=== PATIENT | female | born 1940 ===

== ENCOUNTER 2020-09-29 07:00 | Inpatient (IN) | payer OTHER ==
[~2020-09-29] VITALS: Ht 157.5 cm; Wt 72.6 kg
[2020-09-29] MEDS ORDERED: NAMENDA5 MG PO (08:18)
[2020-09-29] MEDS ORDERED: COZAAR50 MG PO (08:18)
[2020-09-29] MEDS ORDERED: CHLORTHALIDONE PO (08:19)
[2020-09-29] MEDS ORDERED: CRESTOR10 MG PO (08:19)
[2020-09-29] MEDS ORDERED: ROZEREM8 MG PO (08:20)
[2020-09-29] MEDS ORDERED: ELAVIL PO (08:20)
[2020-10-05] MEDS ORDERED: ESCITALOPRAM OX10 MG PO (08:18)
[2020-10-05] MEDS ORDERED: CYANOCOBAL1000 MCG/1 (08:18)
[2020-10-05] MEDS ORDERED: AMITRIPTYLINE H10 MG (08:18)
[2020-10-05] MEDS ORDERED: CHLORTHALIDONE25 MG (08:18)
== END 2020-10-07 17:48 | DRG 470 ==
LOC: SURH 10-04 05:29 → O/R 10-04 05:29 → SURH 10-04 07:00 → O/R 10-04 14:46 → SURH 10-04 14:47
PROVIDERS: ADMIT Orthopaedic Surgery; ATTEND Orthopaedic Surgery
PROC: 0SRC0J9 Replacement of Right Knee Joint with Synthetic Substitute, Cemented, Open Approach (ICD-10-PCS; principal; 2020-10-04 10:15)
DX: M17.11 Unilateral primary osteoarthritis, right knee (principal); D62 Acute posthemorrhagic anemia; I10 Essential (primary) hypertension; M85.88 Other specified disorders of bone density and structure, other site; Z20.822 Contact with and (suspected) exposure to COVID-19

== ENCOUNTER 2020-10-08 18:44 | Inpatient (IN) | payer OTHER ==
[~2020-10-08] VITALS: Ht 157.5 cm; Wt 74.8 kg
[~2020-10-08 18:44] MED LIST: AMITRIPTYLINE H10 MG; CHLORTHALIDONE PO; CHLORTHALIDONE25 MG; COZAAR50 MG PO; CRESTOR10 MG PO; CYANOCOBAL1000 MCG/1; ELAVIL PO; ESCITALOPRAM OX10 MG PO; NAMENDA5 MG PO; ROZEREM8 MG PO
--- NOTE | 2020-10-08 19:05 | NUR ---
PTE RECIBIDA EN AMBULANCIA EN COMPANIA DE FAMILIAR EN [facility] POR EDEMA EN LOS PULMONES.PTE POST OPERADA POR DRA MCKEON MEADOWS EL MIERCOLES CON RE-EMPLAZO EN RODILLA RT.PTE NO PRESENTA DIFICULTAD RESP AL MOMENTO,SIN CANULA NASAL,MARCO HISTORIAL EN ORACIONES COMPLETAS,SATURANDO 91%.SE NOTIFICA A DR WYATT.PTE LLEGA SIN DOCUMENTOS,LABS O ESTUDIOS REALIZADOS EN LA OTRA INSTITUCION.
--- NOTE | 2020-10-08 19:35 | NUR ---
SE ORIENTA PTE Y FAMILIAR SOBRE TX MEDICO EL CUAL REFIERE ENTENDER.SE LE EXTRAEN MUESTRAS BAJO MEDIDAS ASEPTICAS.SE NOTIFICA ABG A MS CLARK.SE NOTIFICA PLACA PENDIENTE.
--- NOTE | 2020-10-09 02:02 | NUR ---
SE RECIBE PTE ALERTA Y ORIENTADA X 3 ESFERAS EN CAMA CON BARANDAS ELEVADAS POR SEGURIDAD EN COMPANIA DE FAMILIAR. PRESENTANDO BUEN PATRON RESPIRATORIO SIENDO ASISTIDA POR EPIFANIO CANULA NASAL A 3LTS. AL MOMENTO PTE SE ENCUENTRA DESCANALIZADA SE CANALIZA A PTE EN BRAZO MARIA A AREA SHANNON DE EDEMA Y ERITEMA. SE KAMLESH A PTE EN CAMA CON BARANDAS ELEVADAS POR SEGURIDAD. PENDIENTE CONSULTA CON DR.HERNANDEZ LÓPEZ.
--- NOTE | 2020-10-09 07:08 | NUR ---
PTE ALERTA Y ORIENTADA POR PAT ESFERAS CON BUEN PATRON RESPIRATORIO, AL MOMENTO DE ENTREGA. TIENE CANULA NASAL A 3LT. PENDIENTE CONSULTAS CON DR.HERNANDEZ LÓPEZ POR SOB E HIPORATREMIA. AL MOMENTO NO TIENE CANALIZACIONES.
--- NOTE | 2020-10-09 09:41 | NUR ---
SE LE NOTIFICA A MS VAZQUEZ ORDEN DE TELEMETRIA Y OXIMETRIA.
[2020-10-12] MEDS ORDERED: CIPRO500 MG PO (07:15)
[2020-10-12] MEDS ORDERED: LOSARTAN POTASS50 MG PO (07:15)
[2020-10-12] MEDS ORDERED: AMITRIPTYLINE H10 MG PO (07:15)
[2020-10-12] MEDS ORDERED: CRESTOR10 MG PO (07:15)
== END 2020-10-12 13:55 | DRG 202 ==
LOC: ER 18:44 → SURH 10-09 11:49
PROVIDERS: ADMIT Internal Medicine; ATTEND Internal Medicine
PROC: 4A033R1 Measurement of Arterial Saturation, Peripheral, Percutaneous Approach (ICD-10-PCS; principal; 2020-10-09)
PROC: 3E0F7GC Introduction of Other Therapeutic Substance into Respiratory Tract, Via Natural or Artificial Opening (ICD-10-PCS; 2020-10-09)
PROC: 3E0F7SF Introduction of Other Gas into Respiratory Tract, Via Natural or Artificial Opening (ICD-10-PCS; 2020-10-09)
PROC: 4A12X4Z Monitoring of Cardiac Electrical Activity, External Approach (ICD-10-PCS; 2020-10-09)
PROC: B24BZZZ Ultrasonography of Heart with Aorta (ICD-10-PCS; 2020-10-09)
DX: J40 Bronchitis, not specified as acute or chronic (principal); I50.30 Unspecified diastolic (congestive) heart failure; R09.02 Hypoxemia; R06.02 Shortness of breath; R09.89 Other specified symptoms and signs involving the circulatory and respiratory systems; Z20.822 Contact with and (suspected) exposure to COVID-19